=== PATIENT | male | born 1965 | race Caucasian/White ===

== ENCOUNTER 2016-09-29 10:00 | Emergency (ER) | payer OTHER | END 2016-09-29 10:46 | disposition home or self-care (01) | LOC: ER 10:00 | DX: M54.9 Dorsalgia, unspecified (principal); M54.2 Cervicalgia; I10 Essential (primary) hypertension; F17.210 Nicotine dependence, cigarettes, uncomplicated | CPT/HCPCS: 99070; 99282 ==

== ENCOUNTER 2016-10-19 10:19 | Emergency (ER) | payer OTHER | END 2016-10-19 14:35 | disposition home or self-care (01) | LOC: ER 10:19 | DX: M54.2 Cervicalgia (principal); G89.29 Other chronic pain; F17.210 Nicotine dependence, cigarettes, uncomplicated; Z79.899 Other long term (current) drug therapy | CPT/HCPCS: 96372; 99282-25 ==

== ENCOUNTER 2016-11-19 11:26 | Emergency (ER) | payer OTHER | END 2016-11-19 12:28 | disposition home or self-care (01) | LOC: ER 11:26 | DX: G89.29 Other chronic pain (principal); M54.9 Dorsalgia, unspecified; I10 Essential (primary) hypertension; Z79.899 Other long term (current) drug therapy | CPT/HCPCS: 99282 ==

== ENCOUNTER 2016-12-26 11:07 | Emergency (ER) | payer OTHER | END 2016-12-26 13:21 | disposition home or self-care (01) | LOC: ER 11:07 | DX: S70.01XA Contusion of right hip, initial encounter (principal); W17.89XA Other fall from one level to another, initial encounter; Y92.828 Other wilderness area as the place of occurrence of the external cause; I10 Essential (primary) hypertension; F17.210 Nicotine dependence, cigarettes, uncomplicated; Z79.82 Long term (current) use of aspirin; Z79.899 Other long term (current) drug therapy | CPT/HCPCS: 73502; 96372; 99283-25 ==